=== PATIENT | female | born 1985 | race Caucasian/White ===

== ENCOUNTER 2023-09-01 18:13 | Emergency (ER) | payer SELFPAY ==
[~2023-09-01] VITALS: Ht 149.9 cm; Wt 72.6 kg
[2023-09-01 18:45] VITALS: O2SAT 100
[2023-09-01] MEDS ORDERED: PREDNISONE20 MG PO (19:02)
== END 2023-09-01 19:05 | disposition home or self-care (01) ==
LOC: ER 19:05
DX: L29.9 Pruritus, unspecified (principal); F41.9 Anxiety disorder, unspecified; F90.9 Attention-deficit hyperactivity disorder, unspecified type; F17.210 Nicotine dependence, cigarettes, uncomplicated
CPT/HCPCS: 99282